=== PATIENT | female | born 1995 | race Caucasian/White ===

== ENCOUNTER 2016-11-19 13:12 | Emergency (ER) | payer SELFPAY ==
--- NOTE | 2016-11-19 13:27 | ER Document Report ---
ED GI/ - General Mode of Arrival: Ambulatory Information source: Patient TRAVEL OUTSIDE OF THE [place] IN LAST 30 DAYS: No - HPI Patient complains to provider of: Abdominal pain. No: Vaginal bleeding, Vomiting <RYAN MATHEW - Last Filed: 11/19/16 16:12> <HARI KWOK - Last Filed: 11/19/16 16:51> - General Chief Complaint: Abdominal Pain Stated Complaint: ABDOMINAL PAIN Time Seen by Provider: 11/19/16 13:23 Notes: Patient is a 21 year old female presenting to the emergency department for and abdominal cramping. Patient states that she has had lots of abdominal cramping this week and she took a test on Sunday. Patient denies any vaginal bleeding, nausea, vomiting, or diarrhea. This is the patient' s first . Patient's last menstrual period was 10/09/16. (RYAN MATHEW) - Related Data Allergies/Adverse Reactions: No Known Allergies Allergy (Unverified 11/19/16 13:17) Past Medical History - General Information source: Patient - Social History Smoking Status: Former Smoker Cigarette use (# per day): No Chew tobacco use (# tins/day): No Frequency of alcohol use: Occasional Drug Abuse: None Family History: None Patient has suicidal ideation: No Patient has homicidal ideation: No - Medical History Medical History: Negative Surgical Hx: Negative - Immunizations Hx Diphtheria, Pertussis, Tetanus Vaccination: No <RYAN MATHEW - Last Filed: 11/19/16 16:12> Review of Systems - Review of Systems Gastrointestinal: See HPI, Abdominal pain. denies: Diarrhea, Nausea, Vomiting Genitourinary: denies: Burning, Dysuria Female Genitourinary: See HPI, Last menstrual period - 10/09/16, . denies: Vaginal discharge, Vaginal bleeding <RYAN MATHEW - Last Filed: 11/19/16 16:12> Physical Exam - Vital signs Interpretation: Normal <RYAN MATHEW - Last Filed: 11/19/16 16:12> <HARI KWOK - Last Filed: 11/19/16 16:51> - Vital signs Vitals: Temp Pulse Resp BP Pulse Ox 97.9 F 72 20 111/65 99 11/19/16 13:17 11/19/16 13:17 11/19/16 13:17 11/19/16 13:17 11/19/16 13:17 - Notes Notes: GENERAL: Alert, interacts well. No acute distress. HEAD: Normocephalic, atraumatic. EYES: Pupils equal, round, and reactive to light. Extraocular movements intact. ENT: Oral mucosa moist, tongue midline. NECK: Full range of motion. Supple. Trachea midline. LUNGS: Clear to auscultation bilaterally, no wheezes, rales, or rhonchi. No respiratory distress. HEART: Regular rate and rhythm. No murmurs, gallops, or rubs. ABDOMEN: Soft, non-tender. Non-distended. Bowel sounds present in all 4 quadrants. EXTREMITIES: Moves all 4 extremities spontaneously. No edema. No cyanosis. NEUROLOGICAL: Alert and oriented x3. Normal speech. PSYCH: Normal affect, normal mood. SKIN: Warm, dry, normal turgor. No rashes or lesions noted. (RYAN MATHEW) Course - Laboratory Result Diagrams: 11/19/16 13:56 11/19/16 13:56 <RYAN MATHEW - Last Filed: 11/19/16 16:12> - Laboratory Result Diagrams: 11/19/16 13:56 11/19/16 13:56 <HARI KWOK - Last Filed: 11/19/16 16:51> - Re-evaluation Re-evalutation: 11/19/16 15:53 CBC unremarkable, CMP unremarkable, quantitative hCG is quite low at 885.96 which is lower than I would expect for her last menstrual period however she has not had any vaginal bleeding. Patient is a positive, RhoGam is not indicated. Transvaginal ultrasound does not visualize an intrauterine nor does it see any evidence of an ectopic. Patient is going to be asked to have her quantitative hCG repeated in 2 days, and follow up as an outpatient with an [facility] to further trend hCG and get ultrasounds to confirm an intrauterine . (HARI KWOK) - Vital Signs Vital signs: Temp Pulse Resp BP Pulse Ox 98.2 F 70 18 98/62 L 100 11/19/16 16:05 11/19/16 16:05 11/19/16 16:05 11/19/16 16:05 11/19/16 16:05 - Laboratory Laboratory results interpreted by me: 10/08/17 10/08/17 13:56 13:56 Total Bilirubin 1.4 H Beta HCG, Quant 885.96 H Urine Urobilinogen 2.0 H Discharge <RYAN MATHEW - Last Filed: 11/19/16 16:12> <HARI KWOK - Last Filed: 11/19/16 16:51> - Discharge Clinical Impression: Abdominal pain during in first trimester Condition: Stable Disposition: HOME, SELF-CARE Additional Instructions: Today your quantitative beta hCG ( hormone level) was 885. We could not find a on ultrasound. This hormone level is too low to expect to see a on ultrasound at this point. You will need to have your hormone level repeated in 2-3 days. Please have this done through your [facility], you may also have a performed through our hospital. I have written an order to have this performed. Should your pain significantly worsen please return to the emergency department and we will consider repeating another ultrasound. Today we did not see a tubal or ectopic either. Forms: Follow-Up Laboratory Testing [facility]: [facility] [Provider Group] - Follow up as needed Scribe Attestation: 11/19/16 16:51 I personally performed the services described in the documentation, reviewed and edited the documentation which was dictated to the scribe in my presence, and it accurately records my words and actions. (HARI KWOK) Scribe Documentation - Scribe Written by Scribe:: Rita Faith 11/19/16 16:23 acting as scribe for :: Kristofer <RYAN MATHEW - Last Filed: 11/19/16 16:12>
[2016-11-19 14:07] LABS: ABSOLUTE EOSINOPHILS # (AUTO) 0.1 10^3/uL (0.0-0.6); ABSOLUTE LYMPHOCYTES (AUTO) 1.9 10^3/uL (0.5-4.7); ABSOLUTE MONOCYTES (AUTO) 0.2 10^3/uL (0.1-1.4); ABSOLUTE NEUT (AUTO) 2.1 10^3/uL (1.7-8.2); EOSINOPHILS % (AUTO) 1.3 % (0-6); HEMATOCRIT 39.9 % (36.0-47.0); HEMOGLOBIN 14.1 g/dL (12.0-15.5); HGB HCT DIFFERENCE 2.4; LYMPHOCYTES % (AUTO) 43.9 % (13-45); MEAN CORPUSCULAR HEMOGLOBIN 31.4 pg (27.0-33.4); MEAN CORPUSCULAR HGB CONC 35.4 g/dL (32.0-36.0); MEAN CORPUSCULAR VOLUME 89 fl (80-97); MONOCYTES % (AUTO) 5.7 % (3-13); RED BLOOD COUNT 4.51 10^6/uL (3.72-5.28); RED CELL DISTRIBUTION WIDTH 13.8 % (11.5-14.0); SEGMENTED NEUTROPHILS % (AUTO) 48.1 % (42-78); WHITE BLOOD COUNT 4.4 10^3/uL (4.0-10.5)
[2016-11-19 14:14] LABS: APPEARANCE,URINE CLEAR; BILIRUBIN,URINE NEGATIVE (NEGATIVE); GLUCOSE, URINE NEGATIVE (NEGATIVE); KETONES,URINE NEGATIVE (NEGATIVE); LEUKOCYTE ESTERASE,URINE NEGATIVE (NEGATIVE); NITRITE,URINE NEGATIVE (NEGATIVE); PROTEIN,URINE NEGATIVE (NEGATIVE); URINE SPECIFIC GRAVITY 1.015
[2016-11-19 14:23] LABS: ALANINE AMINOTRANSFERASE 24 U/L (9-52); ALBUMIN 4.2 g/dL (3.5-5.0); ALKALINE PHOSPHATASE 69 U/L (38-126); ANION GAP 12 (5-19); ASPARTATE AMINO TRANSFERASE 21 U/L (14-36); BILIRUBIN,DIRECT 0.3 mg/dL (0.0-0.4); BILIRUBIN,TOTAL 1.4 mg/dL (0.2-1.3); BLOOD UREA NITROGEN 12 mg/dL (7-20); CALCIUM 9.7 mg/dL (8.4-10.2); CARBON DIOXIDE 25 mmol/L (22-30); CHLORIDE 104 mmol/L (98-107); CREATININE RESULT 0.79 mg/dL (0.52-1.25); GLUCOSE 82 mg/dL (75-110); POTASSIUM 4.2 mmol/L (3.6-5.0); SODIUM 140.6 mmol/L (137-145)
--- NOTE | 2016-11-19 15:47 | RADIOLOGY REPORT (SQ) ---
EXAM DESCRIPTION: U/S OB TRANSVAG W/DOPPLER COMPLETED DATE/TIME: 11/19/2016 3:39 pm REASON FOR STUDY: LMP 10/09, cramping +home preg text x 3 COMPARISON: None. TECHNIQUE: Transvaginal static and realtime grayscale images acquired of the pelvis. Additional annabella cted spectral and color Doppler images recorded. All images stored on PACs. BHC.96 LIMITATIONS: None. FINDINGS: UTERUS: No visualized intrauterine . RIGHT ADNEXA: Normal ovary with normal vascular flow. No adnexal free fluid. No adnexal masses. LEFT ADNEXA: Normal ovary with normal vascular flow. No adnexal free fluid. No adnexal masses. FREE FLUID: None. OTHER: No other significant finding. IMPRESSION: NO VISUALIZED INTRA- OR EXTRAUTERINE . bHCG LEVEL TOO LOW TO EXPECT VISUALIZATION OF . ECTOPIC CANNOT BE EXCLUDED. FOLLOW-UP ULTRASOUND AND SERIAL BHCG LEVELS STRONGLY RECOMMENDED TO ACCURATELY ASSESS STATU S. TECHNICAL DOCUMENTATION: JOB ID: [id number] All Rights Reserved
[2016-11-19 16:06] VITALS: BP 98/62
== END 2016-11-19 16:20 | disposition home or self-care (01) ==
LOC: ER 13:12
DX: O26.91 Pregnancy related conditions, unspecified, first trimester (principal); R10.9 Unspecified abdominal pain; Z3A.00 Weeks of gestation of pregnancy not specified
CPT/HCPCS: 36415; 76817; 80053; 81001; 84702; 85025; 86900; 86901; 93976; 99284

== ENCOUNTER → 2016-11-21 | Outpatient (CLI) | payer SELFPAY | LOC: LAB 14:39 | PROVIDERS: ATTEND Emergency Medicine | DX: Z32.01 Encounter for pregnancy test, result positive (principal) | CPT/HCPCS: 36415; 84702 ==